=== PATIENT | male | born 1955 | race Caucasian/White ===

== ENCOUNTER 2021-12-30 15:32 | Inpatient (IN) | payer MEDICARE, OTHER ==
[~2021-12-30] VITALS: Ht 170.2 cm; Wt 81.8 kg
[2021-12-30 16:53] LABS: BASOPHILS % 0.8 % (0.0-2.0); EOSINOPHILS % 0.5 % (0.0-5.0); HEMATOCRIT. 32.6 % (42.0-52.0); HEMOGLOBIN. 10.6 g/dL (14.0-18.0); LYMPHOCYTES % 11.8 % (20.0-50.0); MEAN CORPUSCULAR HEMOGLOBIN 23.9 pg (28.0-32.0); MEAN CORPUSCULAR VOLUME 73.7 fL (80.0-94.0); MEAN PLATELET VOLUME 7.2 fl (7.4-10.4); MONOCYTES % 6.1 % (2.0-8.0); NEUTROPHILS % 80.8 % (40.0-76.0); PLATELET 227 x1000/uL (130-400); RED BLOOD CELL COUNT 4.42 mill/uL (4.7-6.1); RED CELL DISTRIBUTION WIDTH 14.2 % (11.6-14.6)
[2021-12-30 16:57] LABS: CHLORIDE 96 mEq/L (98-107)
[2021-12-30] MEDS ORDERED: ALBUTEROL (0.5%) 2.5MG/0.5ML NEB HHN ONE (17:00)
[2021-12-30] MEDS ORDERED: ALBUTEROL (0.5%) 2.5MG/0.5ML NEB HHN NR (18:45)
[2021-12-30] MEDS ORDERED: MORPHINE SULFATE 2 MG/ML CPJ (NOT FOR IM USE) IV NR (19:15)
[2021-12-30] MEDS ORDERED: LORAZEPAM 2MG/ML CPJ IV PRN (22:30)
[2021-12-30] MEDS ORDERED: ONDANSETRON HCL 4MG/2ML INJ IV PRN (22:30)
[2021-12-30] MEDS ORDERED: MAGNESIUM/ALUMINUM HYDROXIDE/SIMETHICONE 30ML UDC PO PRN (22:30)
[2021-12-30] MEDS ORDERED: IPRATROPIUM/ALBUTEROL 0.5-3(2.5)MG/3ML NEB NEB PRN (22:30)
[2021-12-30] MEDS ORDERED: DIPHENHYDRAMINE 50MG/ML VIAL IV PRN (22:30)
[2021-12-30] MEDS: HYDROCODONE/ACETAMINOPHEN 5/325MG TABLET PO PRN (22:43)
[2021-12-30 23:00] VITALS: BP 119/77
[2021-12-31] VITALS: BP 110/73
[2021-12-31] MEDS: ENOXAPARIN 40MG/0.4ML SYR SUBCUT SCH ×2 (00:40→21:02)
[2021-12-31] MEDS: QUETIAPINE FUMARATE 50MG TABLET PO SCH ×2 (00:41→21:03)
[2021-12-31] MEDS: FLUDROCORTISONE ACETATE 0.1MG TABLET PO SCH ×2 (00:41→09:18)
[2021-12-31 04:00] VITALS: BP 102/80
[2021-12-31] MEDS: ARIPIPRAZOLE 5MG TABLET PO SCH (09:18)
[2021-12-31] MEDS: MIDODRINE HCL 5MG TABLET PO SCH ×3 (09:18→17:30)
[2021-12-31] MEDS: THIAMINE HCL 100MG TABLET PO SCH (09:18)
[2021-12-31] MEDS: FOLIC ACID 1MG TABLET PO SCH (09:18)
[2021-12-31] MEDS: HYDROCODONE/ACETAMINOPHEN 5/325MG TABLET PO PRN ×2 (10:45→16:05)
[2021-12-31 12:00] VITALS: BP 102/62
[2021-12-31 16:00] VITALS: BP 103/74
[2021-12-31 17:13] LABS: BASOPHILS % 0.8 % (0.0-2.0); EOSINOPHILS % 0.6 % (0.0-5.0); HEMATOCRIT. 30.9 % (42.0-52.0); HEMOGLOBIN. 9.9 g/dL (14.0-18.0); LYMPHOCYTES % 7.6 % (20.0-50.0); MEAN CORPUSCULAR HEMOGLOBIN 23.5 pg (28.0-32.0); MEAN CORPUSCULAR VOLUME 73.8 fL (80.0-94.0); MEAN PLATELET VOLUME 7.7 fl (7.4-10.4); PLATELET 171 x1000/uL (130-400); RED BLOOD CELL COUNT 4.18 mill/uL (4.7-6.1); RED CELL DISTRIBUTION WIDTH 14.6 % (11.6-14.6)
[2021-12-31 17:32] LABS: INR 1.2; PROTHROMBIN TIME 12.5 sec (9.6-11.0)
[2021-12-31] MEDS ORDERED: NALOXONE HCL 0.4MG/ML VIAL IV PRN (19:45)
[2021-12-31 20:00] VITALS: BP 109/68
[2022-01-01] VITALS: BP 98/65
[2022-01-01 04:00] VITALS: BP 100/65
[2022-01-01 06:43] LABS: BASOPHILS % 0.6 % (0.0-2.0); HEMOGLOBIN. 9.2 g/dL (14.0-18.0); LYMPHOCYTES % 9.5 % (20.0-50.0); MEAN CORPUSCULAR VOLUME 72.9 fL (80.0-94.0); MEAN PLATELET VOLUME 7.2 fl (7.4-10.4); MONOCYTES % 6.2 % (2.0-8.0); NEUTROPHILS % 82.7 % (40.0-76.0); PLATELET 211 x1000/uL (130-400); RED BLOOD CELL COUNT 3.85 mill/uL (4.7-6.1); RED CELL DISTRIBUTION WIDTH 14.4 % (11.6-14.6)
[2022-01-01 08:00] VITALS: BP 113/65
[2022-01-01] MEDS ORDERED: SODIUM BICARBONATE 4% (2.4MEQ) 5ML VIAL IV ONE (08:39)
[2022-01-01] MEDS ORDERED: LIDOCAINE HCL 1% 10 MG/ML 10ML VIAL ONE (08:39)
[2022-01-01] MEDS ORDERED: LIDOCAINE HCL/PF 1% 10 MG/ML 5ML VIAL ONE (08:39)
[2022-01-01] MEDS: HYDROCODONE/ACETAMINOPHEN 5/325MG TABLET PO PRN ×2 (08:41→18:40)
[2022-01-01] MEDS: FLUDROCORTISONE ACETATE 0.1MG TABLET PO SCH (08:41)
[2022-01-01] MEDS: MIDODRINE HCL 5MG TABLET PO SCH ×3 (08:42→17:39)
[2022-01-01] MEDS: THIAMINE HCL 100MG TABLET PO SCH (08:43)
[2022-01-01] MEDS: ARIPIPRAZOLE 5MG TABLET PO SCH (08:43)
[2022-01-01] MEDS: FOLIC ACID 1MG TABLET PO SCH (08:43)
[2022-01-01 12:00] VITALS: BP 94/58
[2022-01-01 16:00] VITALS: BP 109/61
[2022-01-01 20:00] VITALS: BP 110/63
[2022-01-01] MEDS: QUETIAPINE FUMARATE 50MG TABLET PO SCH (22:06)
[2022-01-01] MEDS: ENOXAPARIN 40MG/0.4ML SYR SUBCUT SCH (22:07)
[2022-01-02] VITALS (11 sets, daily range): BP systolic 89–119; BP diastolic 35–91
[2022-01-02] MEDS: FOLIC ACID 1MG TABLET PO SCH (09:15)
[2022-01-02] MEDS: ARIPIPRAZOLE 5MG TABLET PO SCH (09:15)
[2022-01-02] MEDS: MIDODRINE HCL 5MG TABLET PO SCH ×3 (09:18→17:06)
[2022-01-02] MEDS: THIAMINE HCL 100MG TABLET PO SCH (09:18)
[2022-01-02] MEDS: FLUDROCORTISONE ACETATE 0.1MG TABLET PO SCH (09:58)
[2022-01-02] MEDS ORDERED: SODIUM CHLORIDE 0.9% 1,000 ML IV NR (10:15)
[2022-01-02 11:51] LABS: BG BASE EXCESS -0.3 mmol/L (-2.0-2.0); BG CARBOXYHEMOGLOBIN 0.3 % (0.5-1.5); BG DEOXYHEMOGLOBIN 1.4 % (0.0-5.0); BG FRACTION INSPIRED OXYGEN 30; BG HCO3 ACT 22.2 mmol/L (22.0-26.0); BG METHEMOGLOBIN 0.2 % (0.0-1.5); BG OXYGEN SATURATION 98.6 % (92.0-98.5); BG OXYHEMOGLOBIN 98.1 % (94.0-97.0); BG PCO2 28.9 mmHg (35.0-45.0); BG PH 7.503 (7.350-7.450); BG PO2 141.6 mmHg (75.0-100.0); BG SAMPLE SITE RIGHT BRACHIAL; BG TOTAL HEMOGLOBIN 9.7 g/dL (12.0-18.0); BG VENT MODE NASAL CANNULA
[2022-01-02 14:24] LABS: VITAMIN B12 SERUM >2000 pg/mL pg/mL (211-911)
[2022-01-02 15:56] LABS: FERRITIN 520 ng/mL (22-322); PROSTRATE SPECIFIC AG TOTAL 2.25 ng/mL (0.0-4.0)
[2022-01-02 17:52] LABS: CLARITY URINE CLOUDY (CLEAR); COLOR URINE ORANGE (YELLOW); KETONES URINE NEGATIVE (NEGATIVE); LEUKOCYTE ESTERASE URINE 1+ (NEGATIVE); NITRITE URINE POSITIVE (NEGATIVE); OCCULT BLOOD URINE NEGATIVE (NEGATIVE); PROTEIN URINE 1+ (NEGATIVE); SPECIFIC GRAVITY URINE 1.022 (1.005-1.030); UROBILINOGEN URINE 0.2 E.U./dL (0.2-1.0)
[2022-01-02 18:03] LABS: BASOPHILS % 0.4 % (0.0-2.0); EOSINOPHILS % 0.4 % (0.0-5.0); HEMATOCRIT. 29.3 % (42.0-52.0); HEMOGLOBIN. 9.5 g/dL (14.0-18.0); LYMPHOCYTES % 8.1 % (20.0-50.0); MEAN CORPUSCULAR HEMOGLOBIN 23.8 pg (28.0-32.0); MEAN CORPUSCULAR VOLUME 73.3 fL (80.0-94.0); MEAN PLATELET VOLUME 7.5 fl (7.4-10.4); MONOCYTES % 4.1 % (2.0-8.0); PLATELET 135 x1000/uL (130-400); RED CELL DISTRIBUTION WIDTH 14.4 % (11.6-14.6)
[2022-01-02] MEDS: ENOXAPARIN 40MG/0.4ML SYR SUBCUT SCH (22:31)
[2022-01-02] MEDS: QUETIAPINE FUMARATE 50MG TABLET PO SCH (22:36)
[2022-01-03] VITALS (7 sets, daily range): BP systolic 96–136; BP diastolic 54–80
[2022-01-03] MEDS: FOLIC ACID 1MG TABLET PO SCH (08:29)
[2022-01-03] MEDS: ARIPIPRAZOLE 5MG TABLET PO SCH (08:29)
[2022-01-03] MEDS: FLUDROCORTISONE ACETATE 0.1MG TABLET PO SCH (08:29)
[2022-01-03] MEDS: MIDODRINE HCL 5MG TABLET PO SCH ×3 (08:29→17:15)
[2022-01-03] MEDS: THIAMINE HCL 100MG TABLET PO SCH (08:29)
[2022-01-03] MEDS: ENOXAPARIN 40MG/0.4ML SYR SUBCUT SCH (21:16)
[2022-01-04] VITALS (17 sets, daily range): BP systolic 85–182; BP diastolic 50–103
[2022-01-04] MEDS: THIAMINE HCL 100MG TABLET PO SCH (09:00)
[2022-01-04] MEDS: FOLIC ACID 1MG TABLET PO SCH (09:25)
[2022-01-04] MEDS: FLUDROCORTISONE ACETATE 0.1MG TABLET PO SCH (09:25)
[2022-01-04] MEDS: MIDODRINE HCL 5MG TABLET PO SCH ×3 (09:25→16:02)
[2022-01-04] MEDS: ARIPIPRAZOLE 5MG TABLET PO SCH (09:26)
[2022-01-04] MEDS: ASPIRIN 81MG TABLET PO SCH (09:26)
[2022-01-04] MEDS: ENOXAPARIN 40MG/0.4ML SYR SUBCUT SCH (21:23)
[2022-01-04] MEDS: FOLIC ACID/VITAMIN B COMP W-C TABLET PO SCH (22:15)
[2022-01-05] VITALS (15 sets, daily range): BP systolic 85–117; BP diastolic 61–96
[2022-01-05] MEDS: FLUDROCORTISONE ACETATE 0.1MG TABLET PO SCH ×2 (09:00→11:15)
[2022-01-05] MEDS: FOLIC ACID/VITAMIN B COMP W-C TABLET PO SCH ×2 (11:15→15:16)
[2022-01-05] MEDS: ASPIRIN 81MG TABLET PO SCH ×2 (11:15→15:18)
[2022-01-05] MEDS: ARIPIPRAZOLE 5MG TABLET PO SCH ×2 (11:16→15:17)
[2022-01-05] MEDS: THIAMINE HCL 100MG TABLET PO SCH ×2 (11:18→15:16)
[2022-01-05] MEDS: MIDODRINE HCL 5MG TABLET PO SCH ×4 (11:19→18:42)
[2022-01-05] MEDS: FOLIC ACID 1MG TABLET PO SCH ×2 (11:21→15:17)
[2022-01-05] MEDS: DEXT 5%/0.9% NACL 1,000 ML IV SCH (13:27)
[2022-01-05] MEDS: ENOXAPARIN 40MG/0.4ML SYR SUBCUT SCH (21:36)
[2022-01-06 00:13] VITALS: BP 112/68
[2022-01-06 04:00] VITALS: BP 123/79
[2022-01-06 07:16] LABS: BASOPHILS % 0.7 % (0.0-2.0); EOSINOPHILS % 0.6 % (0.0-5.0); HEMATOCRIT. 29.5 % (42.0-52.0); HEMOGLOBIN. 9.5 g/dL (14.0-18.0); MEAN CORPUSCULAR HEMOGLOBIN 23.6 pg (28.0-32.0); MEAN CORPUSCULAR VOLUME 73.4 fL (80.0-94.0); MEAN PLATELET VOLUME 7.4 fl (7.4-10.4); MONOCYTES % 5.4 % (2.0-8.0); NEUTROPHILS % 83.3 % (40.0-76.0); PLATELET 86 x1000/uL (130-400); RED BLOOD CELL COUNT 4.02 mill/uL (4.7-6.1); RED CELL DISTRIBUTION WIDTH 14.2 % (11.6-14.6)
[2022-01-06 08:00] VITALS: BP 85/61
[2022-01-06 08:02] LABS: PHOSPHORUS 6.8 mg/dL (2.5-4.9)
[2022-01-06] MEDS: DEXT 5%/0.9% NACL 1,000 ML IV SCH (08:15)
[2022-01-06] MEDS: ASPIRIN 81MG TABLET PO SCH (09:24)
[2022-01-06] MEDS: THIAMINE HCL 100MG TABLET PO SCH (09:25)
[2022-01-06] MEDS: FOLIC ACID/VITAMIN B COMP W-C TABLET PO SCH (09:25)
[2022-01-06] MEDS: FOLIC ACID 1MG TABLET PO SCH (09:25)
[2022-01-06] MEDS: FLUDROCORTISONE ACETATE 0.1MG TABLET PO SCH (09:25)
[2022-01-06] MEDS: ARIPIPRAZOLE 5MG TABLET PO SCH (09:25)
[2022-01-06] MEDS: MIDODRINE HCL 5MG TABLET PO SCH ×2 (09:39→13:06)
[2022-01-06 12:00] VITALS: BP 85/61
[2022-01-06] MEDS ORDERED: CEFTRIAXONE 1 G PREMIX 50 ML IV SCH (12:45)
[2022-01-06 16:00] VITALS: BP 112/57
[2022-01-06 20:00] VITALS: BP 103/65
[2022-01-07] VITALS: BP 97/62
[2022-01-07 04:00] VITALS: BP 94/64
[2022-01-07 06:03] LABS: BASOPHILS % 0.4 % (0.0-2.0); EOSINOPHILS % 0.6 % (0.0-5.0); HEMATOCRIT. 31.1 % (42.0-52.0); HEMOGLOBIN. 9.9 g/dL (14.0-18.0); LYMPHOCYTES % 7.9 % (20.0-50.0); MEAN CORPUSCULAR HEMOGLOBIN 23.8 pg (28.0-32.0); MEAN CORPUSCULAR VOLUME 74.9 fL (80.0-94.0); MEAN PLATELET VOLUME 7.4 fl (7.4-10.4); NEUTROPHILS % 87.1 % (40.0-76.0); PLATELET 83 x1000/uL (130-400); RED BLOOD CELL COUNT 4.15 mill/uL (4.7-6.1); RED CELL DISTRIBUTION WIDTH 14.7 % (11.6-14.6)
[2022-01-07 08:00] VITALS: BP 101/74
[2022-01-07] MEDS: FLUDROCORTISONE ACETATE 0.1MG TABLET PO SCH (09:09)
[2022-01-07] MEDS: ARIPIPRAZOLE 5MG TABLET PO SCH (09:09)
[2022-01-07] MEDS: FOLIC ACID 1MG TABLET PO SCH (09:09)
[2022-01-07] MEDS: MIDODRINE HCL 5MG TABLET PO SCH ×3 (09:09→17:24)
[2022-01-07] MEDS: ASPIRIN 81MG TABLET PO SCH (09:09)
[2022-01-07] MEDS: CEFTRIAXONE 1,000 MG in DEXTROSE 5% WATER 50 ML IV SCH (09:09)
[2022-01-07] MEDS: FOLIC ACID/VITAMIN B COMP W-C TABLET PO SCH (09:10)
[2022-01-07] MEDS: THIAMINE HCL 100MG TABLET PO SCH (09:11)
[2022-01-07 12:00] VITALS: BP 93/69
[2022-01-07 15:55] VITALS: BP 108/71
[2022-01-07 22:00] VITALS: BP 112/70
[2022-01-08] VITALS (18 sets, daily range): BP systolic 81–125; BP diastolic 49–86
[2022-01-08 07:31] LABS: BASOPHILS % 0.3 % (0.0-2.0); EOSINOPHILS % 0.5 % (0.0-5.0); HEMATOCRIT. 30.3 % (42.0-52.0); HEMOGLOBIN. 9.7 g/dL (14.0-18.0); LYMPHOCYTES % 8.9 % (20.0-50.0); MEAN CORPUSCULAR HEMOGLOBIN 23.5 pg (28.0-32.0); MEAN PLATELET VOLUME 7.6 fl (7.4-10.4); NEUTROPHILS % 86.3 % (40.0-76.0); PLATELET 92 x1000/uL (130-400); RED BLOOD CELL COUNT 4.15 mill/uL (4.7-6.1); RED CELL DISTRIBUTION WIDTH 13.9 % (11.6-14.6)
[2022-01-08] MEDS: ASPIRIN 81MG TABLET PO SCH (08:53)
[2022-01-08] MEDS: FOLIC ACID/VITAMIN B COMP W-C TABLET PO SCH (08:53)
[2022-01-08] MEDS: THIAMINE HCL 100MG TABLET PO SCH (08:53)
[2022-01-08] MEDS: MIDODRINE HCL 5MG TABLET PO SCH ×3 (08:53→17:50)
[2022-01-08] MEDS: FLUDROCORTISONE ACETATE 0.1MG TABLET PO SCH (08:53)
[2022-01-08] MEDS: FOLIC ACID 1MG TABLET PO SCH (08:53)
[2022-01-08] MEDS: ARIPIPRAZOLE 5MG TABLET PO SCH (08:53)
[2022-01-08] MEDS: CEFTRIAXONE 1,000 MG in DEXTROSE 5% WATER 50 ML IV SCH (14:00)
[2022-01-08 18:58] LABS: HEPATITIS B SURFACE ANTIGEN NEGATIVE
[2022-01-08] MEDS ORDERED: SODIUM CHLORIDE 0.9% 500 ML IV ONE (23:30)
[2022-01-09] VITALS (7 sets, daily range): BP systolic 98–135; BP diastolic 60–75
[2022-01-09 08:42] LABS: HEMATOCRIT. 31.3 % (42.0-52.0); MEAN CORPUSCULAR HEMOGLOBIN 23.1 pg (28.0-32.0); MEAN CORPUSCULAR VOLUME 72.1 fL (80.0-94.0); MEAN PLATELET VOLUME 7.2 fl (7.4-10.4); PLATELET 103 x1000/uL (130-400); RED BLOOD CELL COUNT 4.34 mill/uL (4.7-6.1); RED CELL DISTRIBUTION WIDTH 14.1 % (11.6-14.6)
[2022-01-09] MEDS: ARIPIPRAZOLE 5MG TABLET PO SCH (10:17)
[2022-01-09] MEDS: MIDODRINE HCL 5MG TABLET PO SCH ×3 (10:18→17:43)
[2022-01-09] MEDS: FOLIC ACID 1MG TABLET PO SCH (10:18)
[2022-01-09] MEDS: THIAMINE HCL 100MG TABLET PO SCH (10:18)
[2022-01-09 10:43] LABS: INR 1.3; PARTIAL THROMBOPLASTIN TIME 37.9 sec (23.4-31.0); PROTHROMBIN TIME 13.5 sec (9.6-11.0)
[2022-01-09] MEDS: FOLIC ACID/VITAMIN B COMP W-C TABLET PO SCH (11:14)
[2022-01-09] MEDS: FLUDROCORTISONE ACETATE 0.1MG TABLET PO SCH (11:14)
[2022-01-09 13:22] LABS: PLATELET ESTIMATE SLIGHTLY DECREASED
[2022-01-09] MEDS: CEFTRIAXONE 1,000 MG in DEXTROSE 5% WATER 50 ML IV SCH (17:35)
[2022-01-09 19:06] LABS: 25-HYDROXY VITAMIN D3 13 ng/mL (.)
[2022-01-09] MEDS: ENOXAPARIN 40MG/0.4ML SYR SUBCUT SCH (22:50)
[2022-01-10] VITALS: BP 123/64
[2022-01-10 04:00] VITALS: BP 134/69
[2022-01-10 05:18] VITALS: BP 134/69
== END 2022-01-10 07:45 | DRG 432 ==
LOC: ER 15:32 → 6EST 19:07 → EDBD 19:07 → EDBEDREQSVC 19:09 → EDBEDREQ 19:09 → EDBEDREQTM 19:09 → ENRESERV 20:05 → 3WST 01-02 10:42
PROVIDERS: ADMIT Internal Medicine Nephrology; ATTEND Internal Medicine Nephrology
PROC: 0W9G30Z Drainage of Peritoneal Cavity with Drainage Device, Percutaneous Approach (ICD-10-PCS; principal; 2022-01-01)
PROC: 5A1D70Z Performance of Urinary Filtration, Intermittent, Less than 6 Hours Per Day (ICD-10-PCS; 2022-01-08)
DX: K70.31 Alcoholic cirrhosis of liver with ascites (principal); E43 Unspecified severe protein-calorie malnutrition; N18.6 End stage renal disease; G93.41 Metabolic encephalopathy; I12.0 Hypertensive chronic kidney disease with stage 5 chronic kidney disease or end stage renal disease; I69.354 Hemiplegia and hemiparesis following cerebral infarction affecting left non-dominant side; N39.0 Urinary tract infection, site not specified; E87.1 Hypo-osmolality and hyponatremia; R47.01 Aphasia; N44.8 Other noninflammatory disorders of the testis; Z20.822 Contact with and (suspected) exposure to COVID-19; E11.22 Type 2 diabetes mellitus with diabetic chronic kidney disease; M16.9 Osteoarthritis of hip, unspecified; I95.89 Other hypotension; D63.1 Anemia in chronic kidney disease; R26.9 Unspecified abnormalities of gait and mobility; R13.10 Dysphagia, unspecified; G89.29 Other chronic pain; N50.89 Other specified disorders of the male genital organs; Z99.2 Dependence on renal dialysis; Z68.28 Body mass index [BMI] 28.0-28.9, adult
CPT/HCPCS: 36415; 36600; 49083; 70551; 71045; 73502; 76705; 76870; 80048; 80053; 80061; 81003; 82140; 82306; 82375; 82607; 82728; 82746; 82805; 82962; 83605; 83735; 83880; 84100; 84153; 84439; 84443; 84484; 85025; 86705; 86709; 86803; 87340; 87426; 90935; 92610; 93005; 93976; 97162; 97164; 97166; 97168; 99285; A6261; C1893; J0696; J1650; J2270; J3490; J7042; J7060; G0103